=== PATIENT | male | born 1965 | race Caucasian/White ===

== ENCOUNTER 2022-11-13 07:08 | Emergency (ER) | payer SELFPAY ==
[2022-11-13 07:13] VITALS: BP 127/88; PULSE 94; RESP 20; TEMP 36.6; O2SAT 98
--- NOTE | 2022-11-13 07:19 | ED.GENADUL_ITS ---
Discharge Plan Disposition Patient Disposition: Home Condition: Stable Discharge Details Clinical Impression: Pain, dental ED Provider: Braxton Xie Home Meds and New Rx's Prescriptions: New amoxicillin-pot clavulanate 875-125 mg tablet 1 tab PO BID Qty: 14 0RF Discharge Instructions Instructions: Toothache (ED) Additional Instructions: follow up with a dentist as soon as possible you can take 1000mg tylenol and 600mg ibuprofen every 6 hours as needed if you develop fevers, feel more ill or are unable to swallow liquids return to the emergency department Medical Decision Making 57 yo male with no chronic medical problems, states he had a filling from right upper molar fall out a few months ago, comes in with pain the same tooth for 3 days. No fevers, no difficulty swallowing. HE is stable on arrival, speaking in full sentences in no distress. He has numerous caries, the tooth that is causing him pain is the right upper mid molar that is eroded, no visible abscess, normal posterior pharynx, midline uvula, no submandibular swelling, no pain over the hyoid or restricted neck movements. No findings to suggest donta's or other emergent pathologies. Will start on augmentin for possible dental infection, have him use prn tylenol and ibuprofen and topical hurricane gel, and follow up with his dentist. Return precautions also given Differential Diagnosis Differential Diagnosis: pulpitis, caries HPI General Mode of arrival: ambulatory . Date/Time Provider Initiated Documentation: 11/13/22 07:10 . Limitations to Documentation: no limitations . Information obtained by: patient . History of Present Illness 57 year old M presents to the emergency department with the chief complaint of dental pain, described as moderate, Patient started experiencing this day(s) (3) and it has been constant. No relieving factors improve symptom(s), No exacerbating factors reported . Patient notes no other symptoms.. Related Data Home Medications Medication Instructions Recorded Confirmed amoxicillin 875 mg-potassium 1 tab PO BID #14 tabs 11/13/22 clavulanate 125 mg tablet Previous Rx's Medication Instructions Recorded amoxicillin 875 mg-potassium 1 tab PO BID #14 tabs 11/13/22 clavulanate 125 mg tablet Allergies Allergy/AdvReac Type Severity Reaction Status Date / Time No Known Allergies Allergy Unverified 11/13/22 07:15 General Stated Complaint: DentalOral JUAN: 4 Review of Systems All systems reviewed & are unremarkable except as noted in HPI and below Constitutional Constitutional: Denies chills, Denies fever(s) and Denies weakness ENT Ears, Nose, Mouth, and Throat: Denies change in voice Cardiovascular Cardiovascular: Denies chest pain and Denies dyspnea Respiratory Respiratory: Denies cough and Denies dyspnea Gastrointestinal Gastrointestinal: Denies abdominal pain, Denies nausea and Denies vomiting Neurologic Neurologic: Denies weakness PFSH All Active Problems (Updated 11/13/22 @ 07:21 by Braxton Xie MD) Pain, dental (Acute) Social History Smoking risk assessment performed?: No Exam Const General: no acute distress Orientation: alert HENMT Head: normal to inspection Ears: external ears normal General nose exam: external nose normal Mouth: moist mucous membranes Eyes General: appearance normal, both eyes and all related structures Neck Neck: normal visual inspection Resp Effort & Inspection: normal respiratory effort and able to speak in complete sentences Cardio Rate: regular rate Skin General skin exam: no rashes or lesions noted Neuro General: patient alert and patient oriented x3 Extrem General: normal to inspection Psych Mental Status: mental status grossly normal Course Vital Signs Vital signs: Vital Signs Temperature 36.6 C 11/13/22 07:13 Pulse 94 H 11/13/22 07:13 Respiratory Rate 20 11/13/22 07:13 Blood Pressure 127/88 11/13/22 07:13 Pulse Oximetry 98 11/13/22 07:13 Temperature 36.6 C 11/13/22 07:13 Temperature Source Oral 11/13/22 07:13 Pulse 94 H 11/13/22 07:13 Respiratory Rate 20 11/13/22 07:13 Blood Pressure 127/88 11/13/22 07:13 Blood Pressure Position Sitting 11/13/22 07:13 Pulse Oximetry 98 11/13/22 07:13 Oxygen Delivery Method Room Air 11/13/22 07:13 Oxygen Flow Rate 0 11/13/22 07:13 Pain Level 9 11/13/22 07:13
[2022-11-13] MEDS: Benzocaine 20% Gel 30 GM JAR MM (07:32)
[2022-11-13] MEDS: Amoxicillin 875/Clav. 125 TAB PO (07:32)
== END 2022-11-13 07:40 | disposition home or self-care (01) ==
LOC: ER 07:40
PROVIDERS: Emergency Provider Emergency Medicine
DX: K08.89 Other specified disorders of teeth and supporting structures (principal)
CPT/HCPCS: 99283